=== PATIENT | female | born 1965 | race Caucasian/White ===

== ENCOUNTER 2017-10-24 18:28 | Emergency (ER) | payer MEDICAID ==
[2017-10-24 19:37] VITALS: RESP 20
[2017-10-24 19:47] LABS: APPEARANCE,URINE Clear; BILIRUBIN,URINE NEGATIVE (NEGATIVE); COLOR,URINE Yellow; GLUCOSE, URINE (UA) NEGATIVE (NEGATIVE); KETONES,URINE 2+ (NEGATIVE); LEUKOCYTE ESTERASE ,URINE NEGATIVE (NEGATIVE); NITRATE,URINE NEGATIVE (NEGATIVE); OCCULT BLOOD,URINE NEGATIVE (NEG-TRACE); UROBILINOGEN,URINE 0.2 (0.2-1.0 EU)
[2017-10-24 19:50] LABS: HEMATOCRIT 41 % (35-47); MEAN CORPUSCULAR HGB CONC 35.5 gm/dl (32.0-36.0); MEAN CORPUSCULAR VOLUME 92 fL (81-99)
[2017-10-24 19:52] LABS: ALBUMIN 3.6 gm/dl (3.4-5.0); CALCIUM 8.6 mg/dl (8.5-10.1); POTASSIUM 3.9 mMol/L (3.5-5.1); THYROID STIMULATING HORMONE 1.264 uIU/ml (0.358-3.740)
[2017-10-24 19:56] LABS: AMPHETAMINES NEGATIVE (NEGATIVE); METHADONE NEGATIVE (NEGATIVE); OPIATES(OP13) NEGATIVE (NEGATIVE); OXYCODONE(OXY) NEGATIVE (NEGATIVE); PROPOXYPHENE(PPX) NEGATIVE (NEGATIVE); TRICYCLIC ANTIDEPRESSANTS NEGATIVE (NEGATIVE)
[2017-10-24 20:01] LABS: RBC,URINE NEG (0-3AV/HPF); WBC,URINE 0-1 (0-5AV/HPF)
[2017-10-24 20:18] LABS: LYMPHOCYTES % (MANUAL) 8 % (10-50)
[2017-10-24 20:19] LABS: ANISOCYTOSIS SLIGHT; BASOPHILS % (MANUAL) 0 % (0-3); EOSINOPHILS % (MANUAL) 0 % (0-9)
[2017-10-24 22:04] LABS: SALICYLATE < 2.8 mg/dl (2.8-30.0)
[2017-10-25 00:12] VITALS: BP 121/86; PULSE 108; TEMP 97.1; O2SAT 93
== END 2017-10-25 00:45 | DRG 885 ==
LOC: ED 18:28
DX: F20.0 Paranoid schizophrenia (principal)
CPT/HCPCS: 36415; 80053; 80305; 80307; 81001; 83735; 84443; 84703; 85007; 85027; 99284